=== PATIENT | female | born 1990 | race Caucasian/White ===

== ENCOUNTER 2017-04-11 21:32 | Emergency (ER) | payer OTHER ==
[~2017-04-11] VITALS: Ht 180.3 cm; Wt 142.9 kg
[2017-04-11] MEDS ORDERED: IV NORMAL SALINE 1,000ML 1,000 ML IV SCH (22:08)
[2017-04-11] MEDS ORDERED: ONDANSETRON PF 4 MG/2 ML VIAL. IV ONE (22:15)
[2017-04-11] MEDS ORDERED: KETOROLAC 30 MG/ML VIAL. IV ONE (22:15)
--- NOTE | 2017-04-11 22:17 | PHYS DOC ---
General Chief Complaint: FLANK PAIN Stated Complaint: RT SIDE PAIN X 2 WKS Time Seen by MD: 21:37 Source: patient, old records Exam Limitations: no limitations Problems: History of Present Illness Initial Comments Patient is a 27-year-old female who comes to the ED complaining of right sided pain. Patient is very vague in her description of her pain complaints. She complains of suprapubic and right flank discomfort intermittent. She cannot related to by mouth intake she denies any vomiting she states that at times the pain has been so bad it is made her nauseous but she has not vomited. She denies travel or bad food exposure she hasn't had any fever chills sweats or body aches. She has history of ectopic and that is her only prior abdominal or pelvic surgery. She takes no daily medications and claims no ongoing medical problems however on arrival she was noted to be tachycardic with a heart rate in the 110 bpm range and blood pressure consistently running 175/100. She is afebrile she is not taking any medications. She states her appetite has remained intact and denies chest pain or trouble breathing. Timing/Duration: other (2 weeks) Severity: moderate, severe Modifying Factors: improves with other Associated Symptoms: nausea/vomiting, other Allergies: Coded Allergies: No Known Drug Allergies (Unverified , 08/07/15) Past Medical History Medical History: no pertinent history Surgical History: other (ectopic ) Social History Smoker: cigarettes Alcohol: occasionally Drugs: none Review of Systems Constitutional: denies chills, denies diaphoresis, denies fever, denies malaise Respiratory: denies cough, denies shortness of breath Cardiovascular: denies chest pain, denies palpitations Gastrointestinal: see HPI Genitourinary: denies dysuria, denies frequency, denies hematuria Musculoskeletal: see HPI, denies joint swelling, denies neck pain (drugs) Psychiatric/Neurological: denies headache, denies numbness (physical), denies paresthesia, denies weakness Hematologic/Lymphatic: denies blood clots, denies easy bleeding, denies easy bruising Physical Exam General Appearance: no apparent distress, obese Ear, Nose, Throat: hearing grossly normal, normal ENT inspection, normal pharynx Neck: non-tender, supple Respiratory: normal breath sounds, no respiratory distress Cardiovascular: normal peripheral pulses, tachycardia Gastrointestinal: normal bowel sounds, soft (exquisite right upper quadrant tenderness to palpation with guarding no rebound and no mass palpable.), other ( tenderness at right abdominal oblique muscles with some hypertonicity) Rectal: deferred Back: no CVA tenderness, no vertebral tenderness, other Extremities: normal range of motion, non-tender 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 PATIENT: CHRISTAL NELSON ACCOUNT: [id number] : 1990 LOCATION: ER AGE: 27 SEX: F EXAM STATUS: REG ER ORD. PHYSICIAN: MARY ALICE BLUNT DO REASON: RUQ pain, +ramirez PROCEDURE: ABDOMEN LTD Clinical History: Elevated liver enzymes. Technique: Sonographic examination of the right upper quadrant of the abdomen was performed and multiple static images were obtained. Comparison: none Findings: The majority of the liver is visualized and appears homogeneous. There is however increased echogenicity which further limits ultrasound sensitivity for possible solid liver lesion. Liver measures 20 cm in length.. The common bile duct appears normal and measures 4 mm in diameter. The gallbladder is contracted and not well evaluated. The pancreas is not well visualized due to overlying bowel gas . The right kidney appears normal and measures 12 cm in length. Impression: 1. Fatty infiltration of the liver. 2. Hepatomegaly. 3. No evidence of gallbladder disease. Electronically signed by: Warren Duron III, MD (04/11/2017 11:21 PM) [facility] DICTATED AND SIGNED BY: WARREN DURON III, MD DATE: 04/11/17 9349 CC: PCP,NO; MARY ALICE BLUNT DO ~ Labs reveal slight leukocytosis otherwise unremarkable. 2337: Patient currently her rate is 91 bpm, blood pressure 138/83, vital signs have normalized patient states that she smokes several cigarettes immediately prior to coming into the emergency department. That could explain her tachycardia and she also admits to white coat hypertension in the past. I discussed smoking cessation, signs and symptoms to monitor as well as urgent indications to return to the department were discussed. Her questions were answered to her satisfaction and I discussed the departure instructions in detail with her. She expressed agreement and understanding with the treatment plan. Departure Time of Disposition: 23:31 Disposition: 01 HOME, SELF-CARE Diagnosis: abdominal discomfort, leukocytosis, fatty liver Condition: STABLE Patient Instructions: Abdominal Pain (Nonspecific), Muscle Strain, Smoking Cessation, Tips For Success Additional Instructions: Stop smoking seek medical attention if necessary. Increase fluids in her diet to prevent dehydration. [id number] Tylenol and ibuprofen for discomfort. Prescription: Cyclobenzaprine Follow-up with a doctor in 3-5 days for recheck. As discussed there are local doctors who take walk-in appointments, if need be ED staff can provide you a list of such providers. Return to ED with new or changing symptoms. MARY ALICE BLUNT DO Apr 11, 2017 22:17
[2017-04-11 22:20] LABS: BILIRUBIN,URINE NEG (NEG); CLARITY,URINE CLEAR; COLOR,URINE YELLOW; GLUCOSE,URINE NEG (NEG); NITRITE,URINE NEG (NEG); UROBILINOGEN,URINE 0.2 mg/dL (0.2 mg/dL)
[2017-04-11 22:27] LABS: BARBITURATES NEG (NEG); BENZODIAZEPINES NEG (NEG); CANNABINOIDS NEG (NEG); COCAINE NEG (NEG); METHADONE NEG (NEG); OPIATES NEG (NEG); PHENCYCLIDINE NEG (NEG)
[2017-04-11 22:28] LABS: AMPHETAMINE/METHAMPHETAMINE NEG (NEG)
[2017-04-11 22:39] LABS: BASO # 0.1 x10^3/uL (0.0-0.2); BASO % 1 % (0-3); EOS # 0.4 x10^3/uL (0.0-0.7); EOS % 3 % (0-3); HEMATOCRIT 37.1 % (36.0-47.0); HEMOGLOBIN 12.8 g/dL (12.0-15.5); LYMPH # 3.8 x10^3/uL (1.0-4.8); LYMPH % 27 % (24-48); MEAN CORPUSCULAR HEMOGLOBIN 29 pg (25-35); MEAN CORPUSCULAR HGB CONC 34 g/dL (31-37); MEAN CORPUSCULAR VOLUME 85 fL (79-100); MONO % 7 % (0-9); NEUT % 63 % (31-73); PLATELET COUNT 339 x10^3/uL (140-400); RED BLOOD COUNT 4.38 x10^6/uL (3.50-5.40); RED CELL DISTRIBUTION WIDTH 14.5 % (11.5-14.5); WHITE BLOOD COUNT 14.3 x10^3/uL (4.0-11.0)
[2017-04-11 22:49] LABS: ALBUMIN 3.7 g/dL (3.4-5.0); ALBUMIN/GLOBULIN RATIO 0.9 (1.0-1.7); CALCIUM 9.1 mg/dL (8.5-10.1); CREATININE 0.8 mg/dL (0.6-1.0); POTASSIUM 3.5 mmol/L (3.5-5.1); TOTAL BILIRUBIN 0.2 mg/dL (0.2-1.0)
--- NOTE | 2017-04-11 23:24 | RAD ---
Clinical History: Elevated liver enzymes. Technique: Sonographic examination of the right upper quadrant of the abdomen was performed and multiple static images were obtained. Comparison: none Findings: The majority of the liver is visualized and appears homogeneous. There is however increased echogenicity which further limits ultrasound sensitivity for possible solid liver lesion. Liver measures 20 cm in length.. The common bile duct appears normal and measures 4 mm in diameter. The gallbladder is contracted and not well evaluated. The pancreas is not well visualized due to overlying bowel gas . The right kidney appears normal and measures 12 cm in length. Impression: 1. Fatty infiltration of the liver. 2. Hepatomegaly. 3. No evidence of gallbladder disease. Electronically signed by: Warren Olvera III, MD (04/11/2017 11:21 PM) [facility]
[2017-04-11 23:27] VITALS: BP 138/83
[2017-04-11] MEDS ORDERED: CYCL-331 PO (23:36)
[2017-04-11] MEDS ORDERED: CYCLOBENZAPRINE 10MG 4TABLET STARTPACK PO ONE ×2 (23:36→23:45)
== END 2017-04-11 23:54 | disposition home or self-care (01) ==
LOC: ER 21:32
DX: R10.11 Right upper quadrant pain (principal); D72.829 Elevated white blood cell count, unspecified; K76.0 Fatty (change of) liver, not elsewhere classified; F17.210 Nicotine dependence, cigarettes, uncomplicated
CPT/HCPCS: 36415; 76705; 80053; 80307; 81003; 81025; 83605; 83690; 85025; 96361; 96374; 96375; 99285; J1885; J2405; G0479; J7030